=== PATIENT | male | born 1990 | race Caucasian/White ===

== ENCOUNTER → 2020-02-02 14:52 | Outpatient (BNVA) | payer BC, SELFPAY | PROVIDERS: Visit Provider Nurse Practitioner Family | DX: Z20.828 Contact with and (suspected) exposure to other viral communicable diseases (principal) | CPT/HCPCS: 87635 ==

== ENCOUNTER 2022-01-17 19:37 | Emergency (ER) | payer SELFPAY ==
[2022-01-17 19:40] VITALS: BMI 24.1
--- NOTE | 2022-01-17 20:07 | ED_ITS ---
HPI - Fever General: Chief Complaint: Fever Stated Complaint: rash/ infection on face, fever, vomiting Time Seen by Provider: 01/17/22 19:55 History of Present Illness: 29-year-old male who presents with a fever and a facial rash. The patient states he has felt sick for the past 3 to 4 days. He had 2 days where he felt generalized malaise and fever and was in bed. He was seen by his PCP yesterday and told he had skam-htmt-mve-mouth disease. Today he has developed a rash on the entire right side of his face including his lip, cheek and into his ear. He complains of right ear pain as well. He denies any foreign body sensation in his eye. He has been running fevers up to 102. Has been taking Tylenol every 4 hours as well as Benadryl for the itching. He states the pain is gradually worsened in the area of the rash. He did have chickenpox as a child. Associated symptoms: Reports chills, headache(s) and sinus pain; Deny nausea or vomiting Review of Systems General: Reports: 10 or more systems reviewed and unremarkable except in HPI and below Const: Reports: fever(s), chills and fatigue Eyes: Denies: change in vision, blurry vision, eye discomfort, eye discharge or eye redness ENMT: Reports: ear or mastoid pain and sinus pain GI: Denies: nausea or vomiting Neuro: Reports: headache(s); Denies: numbness in extremities or weakness in extremities Physical Exam Narrative: EXAM NARRATIVE: Well-developed well-appearing white male with a rash on the right side of his face. Const: COMMON NORMALS: no acute distress and patient oriented x3 HENMT: COMMON NORMALS: normocephalic and atraumatic HEAD & SCALP: normocephalic and atraumatic OTHER: Maculopapular, vesicular crusted over rash on the right side of the face including the right lateral forehead, right cheek, lateral aspect of the nose on the right on the right chin area extending onto the upper and lower lips. There is also involvement of the right ear including the internal auditory canal. There is no involvement of the tip of the nose. There is no conjunctival injection or drainage from the eye. Eye: COMMON NORMALS: Equal, round and reactive pupils present, EOMs intact bilaterally and conjunctivae normal CONJUNCTIVA: Yes conjunctivae normal PUPIL: Yes Equal, round and reactive pupils present Neck/C-Spine: OTHER: Tender anterior cervical lymphadenopathy in the right upper anterior cervical submandibular region Resp: COMMON NORMALS: normal respiratory effort, No retractions and No use of accessory muscles Cardio: OTHER: Normal heart rate Neuro: COMMON NORMALS: patient oriented x3, CN's II-XII intact bilaterally, moves all extremities and no focal motor deficits Course Vital Signs: Vital signs: Vital Signs Oxygen Delivery Me thod 01/17/22 19:40 MDM - Fever Medical Decision Making Patient has herpes zoster of the right side of his face. There is no involvemen t of the tip of the nose or the intraocular area. 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, Herpes zoster Condition: Stable Prescriptions: New hydrocodone-acetaminophen 5-325 mg tablet 1 tab PO Q4H PRN (Reason: pain) Qty: 14 0RF valacyclovir [Valtrex] 1 gram tablet 1,000 mg PO BID 7 Days Qty: 14 0RF No Action No Known Home Medications Discharge Orders: Discharge ED (Routine); Ordered 01/17/22 Ordered By: Jannette Coe Discharge Diet: Usual diet Discharge Activity: Increase activity as tolerated Patient Instructions: Shingles (ED), Opioid Safety, Pain Management Activity Restrictions/Additional Instructions: Wash your face twice daily with antibacterial soap and water, pat the area dry. Apply topical moisturizing ointment or cream. You can use topical Benadryl as needed for itching. Return if the rash starts to involve the inside of your eye or if you start having any visual changes, persistent fever or persistent vomiting. She can take Tylenol and/or ibuprofen as needed for fever. Take hydrocodone every 4-6 hours as needed for severe pain Coding Level of Care Code ED Contract Negotiation Specialist for Elvira Solorio History Expanded Problem Focused Exam Expanded Problem Focused Medical Decision Making Moderate Complexity Time Spent (min) 20
[2022-01-17] MEDS: HYDROcodone-acetaminophen 5-325 mg Tablet 2 TAB PO (20:19)
[2022-01-17] MEDS: acyclovir 800 mg Tablet PO ×2 (20:20→20:21)
== END 2022-01-17 20:30 | disposition home or self-care (01) ==
PROVIDERS: Emergency Provider Emergency Medicine
DX: B02.9 Zoster without complications (principal); B02.21 Postherpetic geniculate ganglionitis
CPT/HCPCS: 99283; J8499

== ENCOUNTER → 2022-10-01 11:55 | Outpatient (BNVA) | payer OTHER, SELFPAY | PROVIDERS: Visit Provider Registered Nurse Neonatal Intensive Care | DX: S62.501A Fracture of unspecified phalanx of right thumb, initial encounter for closed fracture (principal); S60.450A Superficial foreign body of right index finger, initial encounter; X58.XXXA Exposure to other specified factors, initial encounter | CPT/HCPCS: 73130 ==

== ENCOUNTER → 2022-10-08 09:15 | Outpatient (BNVA) | payer OTHER, SELFPAY | PROVIDERS: Referring Provider Registered Nurse Neonatal Intensive Care; Visit Provider Student in an Organized Health Care Education/Training Program | DX: M65.841 Other synovitis and tenosynovitis, right hand | CPT/HCPCS: 73130 ==

== ENCOUNTER 2022-10-08 20:17 | Emergency (ER) | payer SELFPAY ==
--- NOTE | 2022-10-08 20:22 | XRR_ITS ---
PROCEDURE INFORMATION: Exam: XR Right Hand Exam date and time: 10/08/2022 8:26 PM Age: 31 years old Clinical indication: Pain; Hand; Right; Additional info: Right hand injury TECHNIQUE: Imaging protocol: Radiologic exam of the right hand. Views: 3 or more views. COMPARISON: No relevant prior studies available. FINDINGS: Bones/joints: No acute fracture or other acute osseous abnormality. No acute joint abnormality demonstrated. Soft tissues: 6 mm metallic density seen adjacent to the distal 2nd metacarpal, suspicious for foreign body. XR/XR hand RT min 3V* [id number] IMPRESSION: 1. 6 mm metallic density seen adjacent to the distal 2nd metacarpal, suspicious for foreign body. 2. No acute fracture demonstrated.
[2022-10-08 20:26] VITALS: BP 131/81; PULSE 118; RESP 16; TEMP 36.6; O2SAT 97; BMI 25.7
--- NOTE | 2022-10-08 23:34 | ED_ITS ---
HPI - Skin/Abscess/Foreign Bdy General: Chief complaint: Skin/Abscess/Foreign Body Stated complaint: right hand injury Time Seen by Provider: 10/08/22 21:03 History of Present Illness: Patient is here for foreign body in his hand. He reports that 4 years ago he got a piece of metal from a burn barrel in his right hand. He states that he has had 2 ER visits and has been told both times that he did not have foreign body in his hand. He states that he has been seeing a hand surgeon for a different issue with his right hand and he saw that hand surgeon today and they did an x-ray and he does have foreign body in his hand. He states that the hand surgeon told him that he could go into surgery and remove that if he wanted him to. He states that tonight he decided to cut the hand open so that we could see the foreign body and remove it in the ER. He comes in with a laceration to his hand. He states that he was unable to remove the foreign body at home because it seemed to be stuck on something. He reports that he is up-to-date on his tetanus vaccination. Associated symptoms: Deny fever(s) Review of Systems Const: Denies: fever(s) Card: Denies: chest pain or palpitations Musc: Reports: other (Complaints of foreign body right [id number]-kqkawcppe laceration) Physical Exam Const: COMMON NORMALS: no acute distress, patient oriented x3 and alert Resp: COMMON NORMALS: normal respiratory effort and No use of accessory muscles Extremity: OTHER: Right dorsal hand over the second metatarsal there is an approximate 1-1/2 cm laceration linear. Superficial. I am unable to appreciate any foreign body. Bleeding is controlled. Patient has full flexion extension of the second digit. CSM within normal limits. Neuro: COMMON NORMALS: patient oriented x3 SENSORIUM/ORIENTATION: Yes alert Procedures Laceration Right dorsal hand: Site: upper extremity Side (If applicable): right Size (cm): 1.5 Description: linear and clean Depth: simple, single layer Local Anesthetic: lidocaine 1% Amount of anesthesia used (mL): 3 Pre-repair: wound explored and deep structures intact Skin layer closed with: other (Prolene) Size (cm): 4-0 Number of sutures: 3 Course Vital Signs: Vital signs: Vital Signs Temperature 98 F 10/08/22 20:26 Pulse Rate 118 H 07/27/23 20:26 Respiratory Rate 16 10/08/22 20:26 Blood Pressure 131/81 10/08/22 20:26 Pulse Oximetry 97 10/08/22 20:26 MDM - Skin/Abscess/Foreign Bdy Medicial Decision Making Patient is in for a self-inflicted laceration to his right dorsal hand over the second metacarpal. He was trying to remove the foreign body that have been there for 4 years. I do not appreciate a foreign body on physical exam although there is one appreciated on x-ray. There is no bleeding noted to the wound. Patient request that the wound be sutured back if I am not going to remove the foreign body. We discussed possible risk and benefits of wound closure with sutures. Patient verbalized consent and understanding to proceed with wound closure with sutures. I advised the patient that I would not remove a foreign b orquidea that I cannot see. I will refer patient to hand surgery. Please see procedure note for wound closure. Patient tolerated well. Referred to case management to set up a consult with hand surgeon for soft tissue foreign body. Return to the ER as needed for any new or worsening symptoms. Lab Data Radiology Impressions Hand X-Ray 10/08/22 20:22 IMPRESSION: 1. 6 mm metallic density seen adjacent to the distal 2nd metacarpal, suspicious for foreign body. 2. No acute fracture demonstrated. Discharge Plan Discharge Patient Disposition: Home Clinical Impression: Foreign body (FB) in soft tissue, Laceration Condition: Stable Prescriptions: No Action prednisone 20 mg tablet 20 mg PO DAILY Qty: 15 0RF Rx Instructions: 60mg X3 days 40mg X2 days 20mg X 2days Discharge Orders: Discharge ED (Routine); Ordered 10/08/22 Ordered By: Sujata Arechiga Discharge Diet: Usual diet Discharge Activity: Resume usual activity Patient Instructions: Care For Your Stitches (DC), Soft Tissue Foreign Body (ED) Activity Restrictions/Additional Instructions: Follow-up with hand surgeon for further address of foreign body in your hand. Keep your wound clean and dry. Monitor closely for signs of infection. Return in 5 to 7 days for removal of sutures. Return sooner as needed for new or worsening symptoms. I do not recommend any further cutting or trying to dissect the foreign body out. I recommend follow-up with hand surgeon. Coding Level of Care Code ED Supervising Broker for Elvira Solorio
[2022-10-08 23:47] VITALS: BP 139/87; PULSE 77; RESP 16; O2SAT 97
--- NOTE | 2022-10-09 11:59 | PC.SOCIAL ---
Addendum entered by Terra Ramires 10/14/22 13:59: Patient had a follow up appointment scheduled with ortho - patient did attend appointment. Original Note: Ortho referral Referral sent to ortho at this time. Clinic will contact patient with appt date/time.
== END 2022-10-08 23:49 | disposition home or self-care (01) ==
PROVIDERS: Emergency Provider Nurse Practitioner Family
DX: S61.421A Laceration with foreign body of right hand, initial encounter (principal); W45.8XXA Other foreign body or object entering through skin, initial encounter
CPT/HCPCS: 12001; 73130; 99283

== ENCOUNTER 2025-02-17 20:54 | Emergency (ER) | payer SELFPAY ==
[2025-02-17 20:58] VITALS: BP 135/84; PULSE 99; RESP 16; TEMP 36.4; O2SAT 97; BMI 26.4
[2025-02-17 21:45] VITALS: BP 126/67; PULSE 89; RESP 17; O2SAT 93
--- NOTE | 2025-02-17 22:06 | W.ED.DENTAL ---
HPI - Dental/Oral General: Chief complaint: Dental/Oral Stated complaint: Jaw Pain Time Seen by Provider: 02/17/25 21:34 History of Present Illness: Patient is 34-year-old gentleman without medical issues, that presents to the ED due to dental pain. Initially had this dental pain 1 month ago, he was able to obtain facial antibiotics [id number], which was more of a left ear that radiated down to his jaw pain, that resolved. Today he complains of worsening pain over the last 3-4 days along the left posterior lower second molars. He stated he tried to pull this tooth himself. No fevers. He is able to open his mouth Associated symptoms: Denies fever(s) Related Data Previous Rx's ?Medication ?Instructions ?Recorded prednisone 20 mg tablet 20 mg PO DAILY #15 tabs 10/08/22 amoxicillin 500 mg capsule 500 mg PO TID 10 days #30 caps 02/17/25 diclofenac sodium 75 mg 75 mg PO BID PRN pain #30 tabs 02/17/25 tablet,delayed release methocarbamol 750 mg tablet 750 mg PO Q8H PRN muscle spasm #30 02/17/25 tabs Allergies Allergy/AdvReac Type Severity Reaction Status Date / Time No Known Allergies Allergy Verified 02/17/25 21:05 Review of Systems General: Reports: 10 or more systems reviewed and unremarkable except in HPI and below Const: Denies: fever(s), chills, body aches or fatigue Eyes: Denies: change in vision ENMT: Reports: dental pain; Denies: throat pain Card: Denies: chest pain, palpitations or irregular heart rhythm Resp: Denies: dyspnea or productive cough GI: Denies: abdominal pain or nausea Musc: Denies: neck pain or back pain Skin/Breast: Denies: rash or pruritus Neuro: Denies: headache(s), numbness in extremities, weakness in extremities or sensory changes Psych: Denies: anxiety, depression or suicidal ideation Physical Exam Const: COMMON NORMALS: patient oriented x3 and alert EXAM LIMITATIONS: no altered mental status GENERAL APPEARANCE: cooperative ORIENTATION/CONSCIOUSNESS: Yes oriented to person and Yes oriented to place HENMT: COMMON NORMALS: normocephalic and atraumatic HEAD & SCALP: normocephalic and atraumatic Eye: COMMON NORMALS: Equal, round and reactive pupils present GENERAL EYE: appearance normal, both eyes and all related structures PUPIL: Yes Equal, round and reactive pupils present Chest: COMMONS NORMALS: normal inspection of the chest CHEST: Yes Symmetrical chest wall rise Resp: COMMON NORMALS: normal respiratory effort and No use of accessory muscles EFFORT & INSPECTION: No respiratory distress Cardio: COMMON NORMALS: regular rate, regular rhythm and Peripheral pulses 2+ throughout RATE: regular rate RHYTHM: regular rhythm PERIPHERAL PULSES: Peripheral pulses 2+ throughout GI: COMMON NORMALS: Normal to inspection, nondistended, normoactive bowel sounds present, Soft to palpation, non-tender and No hepatosplenomegaly present PALPATION: Yes Soft to palpation and Yes No hepatosplenomegaly present : COMMON NORMALS: Yes no CVA tenderness BLADDER/KIDNEY EXAM: Yes no CVA tenderness Back/Pelvis: COMMON NORMALS: no CVA tenderness and thoracic and lumbar spine normal to inspection Extremity: COMMON NORMALS: normal to inspection, full ROM and capillary refill normal Neuro: COMMON NORMALS: patient oriented x3 SENSORIUM/ORIENTATION: Yes alert, Yes oriented to person and Yes oriented to place Psych: APPEARANCE: Yes grossly normal ATTITUDE: Yes calm Course Vital Signs: Vital signs: Vital Signs Temperature 97.6 F 02/17/25 20:58 Pulse Rate 87 02/17/25 22:20 Respiratory Rate 17 02/17/25 22:20 Blood Pressure 124/85 02/17/25 22:20 Pulse Oximetry 94 02/17/25 22:20 Oxygen Delivery Me thod Room Air 02/17/25 20:58 MDM - Dental/Oral Medical Decision Making 34-year-old male with increasing dental pain over the last 3 days. He had this a month ago that was slightly different up to his left ear, this time it is mainly in the mandible, lower jaw, posterior molars. He does not have any abscess. There is no trismus. There is no red flags. Antibiotics ordered. Encourage patient to schedule doctors appointment on Wednesday and return here if he has any issues with abscess, or trismus. Medical Records I reviewed the patient's medical records. No radiology studies performed this visit Discharge Plan Discharge Patient Disposition: Home Clinical Impression: Dental caries Condition: Stable Prescriptions: New amoxicillin 500 mg capsule 500 mg PO TID 10 Days Qty: 30 0RF methocarbamol 750 mg tablet 750 mg PO Q8H PRN (Reason: muscle spasm) Qty: 30 0RF diclofenac sodium 75 mg tablet,delayed release (DR/EC) 75 mg PO BID PRN (Reason: pain) Qty: 30 0RF No Action prednisone 20 mg tablet 20 mg PO DAILY Qty: 15 0RF Rx Instructions: 60mg X3 days 40mg X2 days 20mg X 2days Discharge Orders: Discharge ED (Routine); Ordered 02/17/25 Ordered By: Leidy Live Discharge Diet: Usual diet Discharge Activity: Resume usual activity Patient Instructions: Toothache (ED), Patient Portal & Stephenie Instructions Activity Restrictions/Additional Instructions: - Mouthwash twice daily - [place] teeth twice daily - Antibiotics as directed. Take a probiotic or eat active culture yogurt to avoid infectious diarrhea - Since we do not do dental work at the ER, you will need to call the dentist on Wednesday to make an appointment next week. We discussed that a lot of the dental services have sliding scale so that this can be affordable for you. It is important to follow-up with the dentist, since this will just keep happening and get worse if you do not take care of the problem. - Come back to ER if you have a fever greater than 100.4, or unable to open your mouth Thank you for choosing [facility] for your healthcare needs today. You have been screened and evaluated and felt safe for discharge. Health conditions do change or evolve sometimes and as such it is important that you follow up with your Primary Doctor to be re checked, 3-5 days is a general good time frame for follow up. You are always welcome to return to the ED for re assessment if your symptoms are worsening or you have new concerns Print Language: Yakut Coding Level of Care Code ED Communication Center Coordinator for Elvira Solorio
[2025-02-17 22:20] VITALS: BP 124/85; PULSE 87; RESP 17; O2SAT 94
== END 2025-02-17 22:21 | disposition home or self-care (01) ==
PROVIDERS: Emergency Provider Physician Assistant
DX: K02.9 Dental caries, unspecified (principal)
CPT/HCPCS: 99283; J9999